=== PATIENT | male | born 1935 | race Caucasian/White ===

== ENCOUNTER 2020-07-11 19:35 | Emergency (ER) | payer OTHER ==
[2020-07-11 20:12] LABS: BILIRUBIN NEGATIVE (NEGATIVE); BLOOD 3+ Ery/uL (NEGATIVE); CLARITY CLOUDY (CLEAR); COLOR RED (YELLOW); GLUCOSE (U) NORMAL (NORMAL); LEUKOCYTES 2+ Leu/uL (NEGATIVE); NITRITE POSITIVE (NEGATIVE); PROTEIN 3+ mg/dL (NEGATIVE); SPECIFIC GRAVITY <=1.005 (1.001-1.030); pH >=9.0 (5.0-9.0)
[2020-07-11 20:20] LABS: BACTERIA TRACE; TRIPLE PHOSPHATE CRYSTALS LARGE; URINARY RBC TNTC
[2020-07-11 20:26] LABS: BASOPHIL 0.4 % (0-2); EOSINOPHIL 3.9 % (0-7); HCT 38.6 % (42.0-52.0); HGB 12.9 g/dl (13.2-18.0); LYMPHOCYTE 29.2 % (15-48); MCH 31.2 pg (25.0-31.0); MCHC 33.4 g/dL (32.0-36.0); MCV 93.5 fL (78.0-100.0); MONOCYTE 13.1 % (0-12); MPV 10.4 fL (6.0-9.5); NEUTROPHIL 53.2 % (41-80); NRBC 0; PLT 131 K/uL (150-400); RBC 4.13 M/uL (4.70-6.00); RDW 13.1 % (11.5-14.0); WBC 4.9 K/uL (4.0-10.5)
[2020-07-11 20:33] LABS: INR 1.2 (0.9-1.2); PROTHROMBIN TIME 14.4 SECONDS (11.4-13.6); PTT 30.8 SECONDS (22.2-34.7)
[2020-07-11 20:39] LABS: ALBUMIN 3.2 g/dL (3.4-5.0); BILIRUBIN - TOTAL 0.5 mg/dL (0.2-1.0); BUN/CREAT RATIO (CALC) 24.4 RATIO; CREATININE 1.19 mg/dL (0.67-1.17); GLOBULIN (CALCULATION) 3.5 g/dL; POTASSIUM 4.6 mmol/L (3.5-5.1); TOTAL PROTEIN 6.7 g/dL (6.4-8.2)
[2020-07-11] MEDS ORDERED: MACROBID100 MG PO (22:43)
== END 2020-07-11 23:30 | disposition home or self-care (01) ==
LOC: FER 19:35
PROVIDERS: Emergency Medicine Emergency Medical Services
DX: T83.83XA Hemorrhage due to genitourinary prosthetic devices, implants and grafts, initial encounter (principal); R31.0 Gross hematuria; I71.4 Abdominal aortic aneurysm, without rupture; I10 Essential (primary) hypertension; G30.9 Alzheimer's disease, unspecified; F02.80 Dementia in other diseases classified elsewhere, unspecified severity, without behavioral disturbance, psychotic disturbance, mood disturbance, and anxiety; Z85.51 Personal history of malignant neoplasm of bladder; Z88.1 Allergy status to other antibiotic agents; Z88.8 Allergy status to other drugs, medicaments and biological substances; Z79.82 Long term (current) use of aspirin; Z79.899 Other long term (current) drug therapy
CPT/HCPCS: 36415; 80053; 81001; 85025; 85610; 85730; 87088; J0696

== ENCOUNTER 2020-11-03 14:11 | Emergency (ER) | payer OTHER ==
[~2020-11-03 14:11] MED LIST: MACROBID100 MG PO
[2020-11-03 17:43] LABS: BILIRUBIN NEGATIVE (NEGATIVE); BLOOD 2+ Ery/uL (NEGATIVE); CLARITY CLOUDY (CLEAR); COLOR YELLOW (YELLOW); GLUCOSE (U) NORMAL (NORMAL); LEUKOCYTES 2+ Leu/uL (NEGATIVE); NITRITE NEGATIVE (NEGATIVE); PROTEIN 2+ mg/dL (NEGATIVE); SPECIFIC GRAVITY 1.025 (1.001-1.030); pH 6.5 (5.0-9.0)
[2020-11-03 17:47] LABS: BACTERIA 2+; URINARY WBC TNTC
[2020-11-03] MEDS ORDERED: CEFDINIR300 MG PO (17:47)
== END 2020-11-03 18:31 | disposition home or self-care (01) ==
LOC: FER 14:11
PROVIDERS: Nurse Practitioner Family
DX: N39.0 Urinary tract infection, site not specified (principal); T83.9XXA Unspecified complication of genitourinary prosthetic device, implant and graft, initial encounter; I10 Essential (primary) hypertension; G30.9 Alzheimer's disease, unspecified; Z88.1 Allergy status to other antibiotic agents; Z88.8 Allergy status to other drugs, medicaments and biological substances
CPT/HCPCS: 81001; 87088; 99283